=== PATIENT | female | born 1960 | race Caucasian/White ===

== ENCOUNTER → 2019-10-27 | Outpatient (CLI) | payer OTHER ==
[~2019-10-27] MED LIST: IOHEXOL 240 MG/ML 50ML VIAL. ONE; IOHEXOL 240 MG/ML 50ML VIAL. PO ONE; IOHEXOL 300 MG/ML 75 ML VIAL. IV ONE
--- NOTE | 2019-10-27 11:34 | RAD ---
CT of the abdomen and pelvis with contrast 10/27/2019 INDICATION: 59-year-old female with history of a rectosigmoid colonic mass identified on: Endoscopy. COMPARISON STUDY: None available TECHNIQUE: Multidetector CT imaging of the abdomen and pelvis was obtained following the administration of IV and oral contrast. FINDINGS: There is a 5 mm noncalcified nodule right middle lobe (axial image #5.) Liver, gallbladder, spleen are unremarkable. Simple appearing renal cysts noted bilaterally. Largest cyst on the left is in the superior pole measuring approximately 8 mm in diameter. Largest cyst on the left is in the inferior pole measuring up to 1.1 cm in diameter. The kidneys are otherwise unremarkable. Pancreas is unremarkable. Mildly increased formed stool appears be present prominently in the transverse and ascending colon. There is a large mass within the rectum heterogenous enhancement is noted throughout the mass with posterior peripheral enhancement and central decreased attenuation. A component of necrosis may be present. Mass extends to the presacral space. Differentiation of the mass from the colonic wall is not possible on the basis of this exam. Given size of the mass, and other findings, some degree of distal obstruction is likely. Several small subcentimeter lymph nodes are noted surrounding the rectosigmoid colon which while not pathologically enlarged somewhat prominent in number. Metastatic adenopathy is possible. Uterus and adnexa are unremarkable. Bladder is grossly unremarkable. No significant free fluid or free air seen in the abdomen pelvis. Pancreas is unremarkable. No acute osseous changes are seen. IMPRESSION: 1. Large mass in the rectum as described consistent with known malignancy. Several small, somewhat prominent lymph nodes are noted adjacent to the rectum. Increased formed stool proximally suggest some degree of obstruction. 2. Indeterminate 5 mm noncalcified nodule, right middle lobe. Recommend CT chest to evaluate further nodules and serve as a baseline for subsequent imaging. CT DOSING PQRS STATEMENT: One or more of the following individualized dose reduction techniques were utilized for this examination: 1. Automated exposure control 2. Adjustment of the mA and/or kV according to patient size 3. Use of iterative reconstruction technique Electronically signed by: Manoj Robbins MD (10/27/2019 11:31 AM) [id number]
== END | disposition home or self-care (01) ==
LOC: CT 07:59
PROVIDERS: ATTEND Internal Medicine Gastroenterology
DX: K62.89 Other specified diseases of anus and rectum (principal); K63.89 Other specified diseases of intestine
CPT/HCPCS: 74177; Q9966; Q9967

== ENCOUNTER → 2019-10-28 | Outpatient (CLI) | payer OTHER ==
[~2019-10-28] MED LIST changes: -IOHEXOL 240 MG/ML 50ML VIAL. ONE; -IOHEXOL 240 MG/ML 50ML VIAL. PO ONE
--- NOTE | 2019-10-28 11:32 | RAD ---
PQRS Compliance Statement: One or more of the following individualized dose reduction techniques were utilized for this examination: 1. Automated exposure control 2. Adjustment of the mA and/or kV according to patient size 3. Use of iterative reconstruction technique CT CHEST W/CONTRAST Clinical Indication: Abnormal CT abdomen and pelvis. Lung nodules. Rectosigmoid colon mass. Comparison: CT abdomen and pelvis, prior day. Technique: Helical CT imaging of the chest is performed after 75 cc Omnipaque 300 IV contrast. Findings: The thyroid is absent. Great vessels are normal caliber. No large pulmonary embolus. Cardiac size normal, no pericardial effusion. There is no adenopathy in the chest. There is no pleural effusion. The central airways are patent. 5 mm nodule in the right middle lobe is stable, image 58. There is minimal dependent atelectasis in the bilateral lower lobes. No other pulmonary nodule is identified. The visualized upper abdomen is stable. No acute bone abnormality. IMPRESSION: Stable 5 mm nodule in the right middle lobe. No other pulmonary nodule is identified. Electronically signed by: Davidson You MD (10/28/2019 11:29 AM) [id number]
== END | disposition home or self-care (01) ==
LOC: CT 10:17
PROVIDERS: ATTEND Internal Medicine Gastroenterology
DX: J98.11 Atelectasis (principal); R91.1 Solitary pulmonary nodule
CPT/HCPCS: 71260; Q9967